=== PATIENT | female | born 1960 | race Caucasian/White ===

== ENCOUNTER → 2016-09-24 | Outpatient (CLI) | payer MEDICARE, MEDICAID ==
--- NOTE | 2016-09-24 17:36 | XCELERA REPORT ---
[address] [address] Lower Extremity Arterial Evaluation Name: TAPAN FIELDS Age: 55 yrs Gender: Female : 1960 Patient Status: Outpatient Patient Location: Study Date: 09/24/2016 02:02 PM Procedure: A color flow and duplex scan of the lower extremity arteries was performed bilaterally with velocity and waveform anaylsis. Ankle brachial indicies performed. Reason For Study: ULCER Ordering Physician: YARITZA GRANT Performed By: Evans Ha Measurements and Calculations Right Left MEDICAL MANAGER PSV 80.5 cm/sec Prox PFA PSV -58.5 -40.5 cm/sec Mid SFA PSV -10.0 cm/sec Dist SFA PSV -38.4 -63.7 cm/sec Prox Pop A PSV 39.5 28.9 cm/sec Dist BHAVESH PSV 10.8 13.0 cm/sec Prox DIRECTOR OF SEARCH ENGINE MARKETING PSV 12.2 8.4 cm/sec Dist Alisia A PSV 8.1 cm/sec Chris Pedis PSV 12.4 6.3 cm/sec Right Side Arterial Evaluation Abnormal velocity and monophasic phasic waveforms noted from the Common Femoral artery to the infrageniculate vessels. Occlusion of the Femoral artery is present, with severe attenuation after reconstitution. Occlusion of the Posterior Tibial artery with no flow distal to it. 50-99 % stenosis at the Aorta Iliac with sequential changes. Unusually severe vacuolar compromise. Just better than trickle flow distally. Ankle Brachial index was not obtainable.. Left Side Arterial Evaluation Abnormal velocity and monophasic phasic waveforms noted from the Common Femoral artery to the infrageniculate vessels. Occluded graft noted..Occlusion of the Femoral artery is present, with severe attenuation after reconstitution. Occlusion of the Posterior Tibial artery with no flow distal to it. 50-99 % stenosis at the Aorta Iliac with sequential changes. Unusually severe vacuolar compromise. Just better than trickle flow distally. Ankle Brachial index was not obtainable.. Interpretation Summary Severe hemodynamically significant lesions in the bilateral lower extremities, on duplex imaging, at rest. Occluded left Femoral graft noted. unusually severe compromise, bilaterally. : YARITZA GRANT > Yaritza Grant
== END ==
LOC: SP 13:22
PROVIDERS: ATTEND Surgery
DX: L97.509 Non-pressure chronic ulcer of other part of unspecified foot with unspecified severity (principal)
CPT/HCPCS: 93925

== ENCOUNTER 2017-09-19 10:11 | Emergency (ER) | payer MEDICAID, MEDICARE ==
--- NOTE | 2017-09-19 11:02 | ER Document Report ---
ED Extremity Problem, Lower - General Chief Complaint: Post Surgical Bleeding Stated Complaint: POST SURGICAL ISSUE Time Seen by Provider: 09/19/17 10:46 Mode of Arrival: Ambulatory Information source: Patient TRAVEL OUTSIDE OF THE U.S. IN LAST 30 DAYS: No - HPI Patient complains to provider of: Other - BLEEDING FROM SURGICAL SITE Location: Thigh Occurred: This morning Where: Home Onset/Duration: Sudden Quality of pain: No pain Context: Other - ARTERIAL GRAFT PLACED 2 MONTHS AGO IN [place], RECENTLY MOVED HERE, HAS APPT. TO SEE DR. HERNÁNDEZ ON 09/29. Associated symptoms: denies: Chest pain, Chills, Fever Exacerbated by: Nothing Relieved by: Nothing, Other - SPONTANEOUS RESOLUTION. - Related Data Allergies/Adverse Reactions: acetaminophen [From Percocet] Allergy (Verified 09/19/17 10:11) oxycodone [From Percocet] Allergy (Verified 09/19/17 10:11) Past Medical History - Social History Smoking Status: Current Some Day Smoker Cigarette use (# per day): Yes Chew tobacco use (# tins/day): No Frequency of alcohol use: None Drug Abuse: None Lives with: Family Family History: None Patient has suicidal ideation: No Patient has homicidal ideation: No - Past Medical History Cardiac Medical History: Reports: None Pulmonary Medical History: Reports: None Neurological Medical History: Reports: None Endocrine Medical History: Reports: Hx Diabetes Mellitus Type 1 Renal/ Medical History: Reports: None. Denies: Hx Peritoneal Dialysis Malignancy Medical History: Reports: None GI Medical History: Reports: None Musculoskeltal Medical History: Reports None Psychiatric Medical History: Reports: None Past Surgical History: Reports: Hx Orthopedic Surgery, Hx Vascular Surgery Review of Systems - Review of Systems Constitutional: No symptoms reported EENT: No symptoms reported Cardiovascular: No symptoms reported Respiratory: No symptoms reported Gastrointestinal: No symptoms reported Genitourinary: No symptoms reported Female Genitourinary: Post menopausal Musculoskeletal: No symptoms reported Skin: No symptoms reported Neurological/Psychological: No symptoms reported Physical Exam - Vital signs Vitals: Temp Pulse Resp BP Pulse Ox 97.6 F 108 H 18 105/56 L 94 09/19/17 10:15 09/19/17 10:15 09/19/17 10:15 09/19/17 10:15 09/19/17 10:15 Interpretation: Hypotensive, Tachycardic. No: Tachypneic - General General appearance: Appears well, Alert In distress: None - HEENT Head: Normocephalic Eyes: Normal Conjunctiva: Normal Ears: Normal Nasal: Normal Mouth/Lips: Normal Mucous membranes: Normal - Respiratory Respiratory status: No respiratory distress - Cardiovascular Rhythm: Regular - Abdominal Inspection: Normal - Extremities General upper extremity: Normal inspection General lower extremity: No: Normal inspection Hip: Other - 2 mm OPEN WOUND ALONG SURGICAL SCAR LEFT GROIN. NO ACTIVE BLEEDING. NO PALPABLE HEMATOMA Thigh: Normal Knee: Normal Calf: Normal Foot: Other - S/P AMPUTATION OF TOES # 3,4,5 Course - Vital Signs Vital signs: Temp Pulse Resp BP Pulse Ox 97.6 F 108 H 18 105/56 L 94 09/19/17 10:15 09/19/17 10:15 09/19/17 10:15 09/19/17 10:15 09/19/17 10:15 - Laboratory Result Diagrams: 09/19/17 11:00 09/19/17 11:00 Laboratory results interpreted by me: 09/19/17 09/19/17 11:00 11:00 RDW 14.7 H Glucose 490 H* Total Protein 6.2 L Discharge - Discharge Clinical Impression: Hyperglycemia due to type 1 diabetes mellitus, Bleeding from wound Condition: Stable Disposition: HOME, SELF-CARE Instructions: Hyperglycemia ([facility]) Additional Instructions: CONTINUE PRESENT MEDS. CONTINUE PRESENT WOUND CARE, TRY TO AVOID BENDING HIP MUCH POSSIBLE. TAKE CEPHALEXIN DIRECTED. CHECK YOUR BLOOD SUGAR BEFORE MEALS AND AT BEDTIME, AND GIVE YOURSELF REGULAR INSULIN ACCORDING TO SLIDING SCALE. FOLLOW UP WITH DR. HERNÁNDEZ SCHEDULED. FOLLOW UP WITH LOCAL PRIMARY CARE PROVIDER OF YOUR CHOICE, CALL FOR APPOINTMENT TODAY OR FRIDAY. RETURN TO E.R. IF PROBLEMS. Prescriptions: Cephalexin Monohydrate [Keflex 500 mg Capsule] 500 mg PO QID #20 capsule Insulin Regular, Human [Humulin R (Pyxis) Insulin 100 Unit/ml 3Ml] 0 unit SUBCUT .SLD SCALE #10 ml Referrals: RANDY ENGLAND MD [ACTIVE STAFF] - Follow up as needed FEMI DE LA CRUZ MD [ACTIVE STAFF] - Follow up as needed NANCY HERMOSILLO MD [ACTIVE STAFF] - Follow up as needed
[2017-09-19 11:23] LABS: ABSOLUTE BASOPHILS # (AUTO) 0.1 10^3/uL (0.0-0.2); ABSOLUTE EOSINOPHILS # (AUTO) 0.3 10^3/uL (0.0-0.6); ABSOLUTE LYMPHOCYTES (AUTO) 1.6 10^3/uL (0.5-4.7); ABSOLUTE MONOCYTES (AUTO) 0.5 10^3/uL (0.1-1.4); ABSOLUTE NEUT (AUTO) 5.7 10^3/uL (1.7-8.2); BASOPHILS % (AUTO) 0.7 % (0-2); EOSINOPHILS % (AUTO) 3.2 % (0-6); HEMATOCRIT 40.8 % (36.0-47.0); HEMOGLOBIN 13.7 g/dL (12.0-15.5); MEAN CORPUSCULAR HEMOGLOBIN 30.6 pg (27.0-33.4); MEAN CORPUSCULAR HGB CONC 33.5 g/dL (32.0-36.0); MEAN CORPUSCULAR VOLUME 92 fl (80-97); MONOCYTES % (AUTO) 5.6 % (3-13); PLATELET COUNT 175 10^3/uL (150-450); RED BLOOD COUNT 4.46 10^6/uL (3.72-5.28); RED CELL DISTRIBUTION WIDTH 14.7 % (11.5-14.0); SEGMENTED NEUTROPHILS % (AUTO) 70.5 % (42-78); TOTAL CELLS COUNTED % (AUTO) 100 %; WHITE BLOOD COUNT 8.1 10^3/uL (4.0-10.5)
[2017-09-19 11:31] LABS: INTERNATIONAL RATION (INR) 0.89; PROTHROMBIN TIME 12.5 SEC (11.4-15.4)
[2017-09-19 11:40] LABS: ALANINE AMINOTRANSFERASE 26 U/L (9-52); ALBUMIN 3.5 g/dL (3.5-5.0); ALKALINE PHOSPHATASE 80 U/L (38-126); ANION GAP 13 (5-19); ASPARTATE AMINO TRANSFERASE 18 U/L (14-36); BILIRUBIN,DIRECT 0.2 mg/dL (0.0-0.4); BILIRUBIN,TOTAL 0.3 mg/dL (0.2-1.3); BLOOD UREA NITROGEN 10 mg/dL (7-20); CALCIUM 9.1 mg/dL (8.4-10.2); CARBON DIOXIDE 24 mmol/L (22-30); CHLORIDE 102 mmol/L (98-107); POTASSIUM 4.1 mmol/L (3.6-5.0); SODIUM 139.2 mmol/L (137-145); TOTAL PROTEIN 6.2 g/dL (6.3-8.2)
[2017-09-19 11:51] LABS: GLUCOSE 490 mg/dL (75-110)
[2017-09-19] MEDS ORDERED: INSULIN REG, HUMAN 100 UNIT/ML 3 ML VIAL (PYX) SUBCUT ONE (12:26)
[2017-09-19] MEDS ORDERED: CEPHALEXIN 500 MG CAPSULE PO ONE (13:25)
[2017-09-19 13:52] VITALS: BP 112/67
== END 2017-09-19 13:52 | disposition home or self-care (01) ==
LOC: ER 10:11
DX: T82.838A Hemorrhage due to vascular prosthetic devices, implants and grafts, initial encounter (principal); E10.65 Type 1 diabetes mellitus with hyperglycemia; Z89.429 Acquired absence of other toe(s), unspecified side; F17.210 Nicotine dependence, cigarettes, uncomplicated
CPT/HCPCS: 99283; 36415; 82962; 85025; 85610; 80053; A9270 ×2; J1815

== ENCOUNTER → 2017-11-12 | Outpatient (CLI) | payer MEDICAID, MEDICARE ==
--- NOTE | 2017-11-12 14:44 | RADIOLOGY REPORT (SQ) ---
EXAM DESCRIPTION: FOOT LEFT COMPLETE COMPLETED DATE/TIME: 11/12/2017 1:54 pm REASON FOR STUDY: L97.522 NON-PRS CHRONIC ULCER OTH PRT LEFT FOOT W FAT LAYER EXPOSED L97.522 NON-P RS CHRONIC ULCER OTH PRT LEFT FOOT W FAT LAYER T81.31XA DISRUPTION OF EXTERNAL OPERATION (SURGICAL) WOUND, COMPARISON: None. NUMBER OF VIEWS: Three views. TECHNIQUE: AP, lateral and oblique radiographic images acquired of the left foot. LIMITATIONS: None. FINDINGS: MINERALIZATION: Normal. BONES: Previous amputation at the mid metatarsal level of the 3rd, 4th, 5th toes. No acute fracture or dislocation. No worrisome bone lesions. JOINTS: No effusions. SOFT TISSUES: Mild lateral soft tissue irregularity. No gas in the soft tissues. No foreign body. OTHER: No other significant finding. IMPRESSION: PREVIOUS AMPUTATION OF THE 3RD, 4TH, AND 5TH TOES. MILD LATERAL SOFT TISSUE IRREGULARIT Y MAY REPRESENT A SUPERFICIAL ULCER. NO RADIOPAQUE FOREIGN BODY OR GAS IN THE SOFT TISSUES. NO RADI OGRAPHIC EVIDENCE OF OSTEOMYELITIS. TECHNICAL DOCUMENTATION: JOB ID: [id number] [employer]- All Rights Reserved Reading location - IP/workstation name: [email or web address]
--- NOTE | 2017-11-12 16:38 | RADIOLOGY REPORT (SQ) ---
EXAM DESCRIPTION: VENOUS BILATERAL LOWER COMPLETED DATE/TIME: 11/12/2017 4:21 pm REASON FOR STUDY: SWELLING L97.522 NON-PRS CHRONIC ULCER OTH PRT LEFT FOOT W FAT LAYER T81.31XA D ISRUPTION OF EXTERNAL OPERATION (SURGICAL) WOUND, COMPARISON: None. TECHNIQUE: Dynamic and static darling scale and color images acquired of both lower extremity venous sy stems. Selected spectral images acquired with additional compression and augmentation maneuvers. Imag es stored on PACS. LIMITATIONS: None. FINDINGS: RIGHT LEG COMMON FEMORAL AND FEMORAL: Normal phasicity, compression and augmentation. No visualized echogenic m aterial on darling scale. No defects on color images. POPLITEAL: Normal compression and augmentation. No visualized echogenic material on darling scale. No de fects on color images. CALF VESSELS: Normal compression and augmentation. No visualized echogenic material on darling scale. No defects on color image. Please note that only 1 of the peroneal veins was visualized. GSV AND SSV: Normal compression. No visualized echogenic material on darling scale. No defects on color images. ANY DEEP VENOUS INSUFFICIENCY: Not evaluated. ANY EVIDENCE OF POPLITEAL CYST: No. OTHER: No other significant finding. LEFT LEG COMMON FEMORAL AND FEMORAL: Normal phasicity, compression and augmentation. No visualized echogenic m aterial on darling scale. No defects on color images. POPLITEAL: Normal compression and augmentation. No visualized echogenic material on darling scale. No de fects on color images. CALF VESSELS: Normal compression and augmentation. No visualized echogenic material on darling scale. No defects on color images. Please note that only 1 of the peroneal veins was visualized GSV AND SSV: Normal compression. No visualized echogenic material on darling scale. No defects on color images. ANY DEEP VENOUS INSUFFICIENCY: Not evaluated. ANY EVIDENCE POPLITEAL CYST: No. OTHER: No other significant finding. IMPRESSION: NO EVIDENCE DVT OR SVT IN EITHER LEG. TECHNICAL DOCUMENTATION: JOB ID: [id number] [employer]- All Rights Reserved Reading location - IP/workstation name: [email or web address]
== END ==
LOC: SP 14:04
PROVIDERS: ATTEND Nurse Practitioner
DX: L97.522 Non-pressure chronic ulcer of other part of left foot with fat layer exposed (principal); T81.31XA Disruption of external operation (surgical) wound, not elsewhere classified, initial encounter
CPT/HCPCS: 93970

== ENCOUNTER 2017-11-18 06:37 | Emergency (ER) | payer MEDICARE, MEDICAID ==
--- NOTE | 2017-11-18 06:46 | ER Document Report ---
ED General - General Stated Complaint: ABDOMINAL PAIN Time Seen by Provider: 11/18/17 06:46 Notes: 56-year-old female to the emergency department chief complaint of abdominal bleeding. Patient reportedly recently moved here from the [facility] [place]. Had surgery to open up blood flow to her lower extremities. Apparently had bypass graft placed. Developed wound dehiscence through the abdominal area. Woke up this morning covered in blood. Large amount of bleeding. Was unable to stand. Complaining of severe pain in the left leg. Not taking any of her medications. Has not been able to get her medicines since she has moved here. Daughter states that she drug her to the car and got her in the car. Patient collapsed at triage. Was brought immediately back to room 20. Patient complaining of severe pain in her left leg. Blood is oozing out of her abdomen at the incision site on the left. TRAVEL OUTSIDE OF THE [place] IN LAST 30 DAYS: No - HPI Onset: Just prior to arrival Quality of pain: Sharp, Throbbing Severity: Severe Pain Level: 5 Associated symptoms: Weakness - Related Data Allergies/Adverse Reactions: acetaminophen [From Percocet] Allergy (Verified 09/19/17 10:11) oxycodone [From Percocet] Allergy (Verified 09/19/17 10:11) Past Medical History - General Information source: Patient - Social History Smoking Status: Current Every Day Smoker Cigarette use (# per day): Yes Frequency of alcohol use: None Drug Abuse: None Lives with: Family Family History: None - Medical History Notes: Vascular issues, diabetes, hypertension Endocrine Medical History: Reports: Hx Diabetes Mellitus Type 1 Renal/ Medical History: Denies: Hx Peritoneal Dialysis Past Surgical History: Reports: Hx Orthopedic Surgery, Hx Vascular Surgery Review of Systems - Review of Systems Constitutional: Weakness. denies: Fever, Malaise EENT: denies: Double vision, Difficulty swallowing, Throat swelling Cardiovascular: Palpitations, Heart racing, Dizziness, Lightheaded. denies: Chest pain Respiratory: denies: Cough, Hurts to breathe, Short of breath, Wheezing Gastrointestinal: Abdominal pain. denies: Diarrhea, Nausea, Vomiting Genitourinary: denies: Burning Musculoskeletal: Other - Severe pain in the left lower extremity. Decreased blood flow left lower extremity Skin: Other - Bleeding from incision site left abdomen. denies: Dryness, Lesions Hematologic/Lymphatic: denies: Anemia, Blood clots, Easy bleeding, Easy bruising Neurological/Psychological: Confusion, Weakness, Numbness Physical Exam - Vital signs Vitals: Temp 96.8 F L 11/18/17 06:50 Interpretation: Hypotensive, Tachycardic - General General appearance: Alert. No: Appears well In distress: Severe - HEENT Head: Normocephalic, Atraumatic Eyes: Normal Pupils: PERRL - Respiratory Respiratory status: No respiratory distress Chest status: Nontender Breath sounds: Normal Chest palpation: Normal - Cardiovascular Rhythm: Tachycardia Heart sounds: Normal auscultation Murmur: No - Abdominal Inspection: Normal Distension: No: Distended Bowel sounds: Hypoactive Tenderness: Tender, Other - As an open abdomen the left lower quadrant which is bleeding. Patient has a large amount of blood coming out of her abdomen and down her legs Organomegaly: No organomegaly - Back Back: Normal, Nontender - Extremities General upper extremity: Normal inspection, Nontender, Normal color, Normal ROM , Normal temperature General lower extremity: Other - The bilateral lower extremities are cold to the touch with no palpable pulses present. There is pallor noted to the bilateral feet. There are multiple toes missing with some eschar is not on remaining toes. No palpable pulses - Neurological Neuro grossly intact: Yes Cognition: Normal Orientation: AAOx4 Glennie Coma Scale Eye Opening: Spontaneous Glennie Coma Scale Verbal: Oriented Glennie Coma Scale Motor: Obeys Commands Mara Coma Scale Total: 15 Speech: Normal Motor strength normal: LUE, RUE, LLE, RLE Sensory: Normal - Psychological Associated symptoms: Normal affect, Normal mood - Skin Skin Temperature: Warm Skin Moisture: Dry Skin Color: Other - Incision with active bleeding coming out of the abdomen at the post surgical incision site area. Course - Re-evaluation Re-evalutation: 11/18/17 08:11 This is extremely ill appearing female. Patient was brought immediately back. Placed on monitor. Initial blood pressure was systolic in the 70s. Blood pressure continued to drop down to systolics in the 50s. 2 large-bore IVs have been obtained. 2 L of LR have been ordered. Emergency release blood ordered with the assumption that she had had massive blood loss due to the large amount of blood that was seen on her abdomen and down her legs. I did order immediate transfusion. 1 of the IVs blew. The immediate need for more access was evident. Verbal consent was obtained. The right neck was prepped and an internal jugular vein central line triple-lumen catheter was placed with no complications. Blood pressure coming back up at this time. Anticipate transfer to [facility]. She is in guarded condition. 11/18/17 08:18 Patient has been followed by Dr. Daniels at [facility] who is a vascular surgeon. Will attempt to make contact with Dr. Daniels at this time. 11/18/17 09:04 [address] did speak with Dr. Daniels. He wants rapid transport at this time. Waiting on whether check. He did ask that we do a CT with abdomen and pelvis this with contrast at this time. Creatinine is 1.75 however surgical intervention is neville at this point. I am treating as well for sepsis. Zosyn has been ordered. 11/18/17 10:21 Laboratory 11/18/17 11/18/17 11/18/17 06:52 07:07 07:07 WBC 27.9 H RBC 3.13 L Hgb 9.4 L Hct 28.4 L MCV 91 MCH 30.0 MCHC 33.1 RDW 14.5 H Plt Count 379 Total Counted 100 Seg Neutrophils % Not Reportable Seg Neuts % (Manual) 85 H Band Neutrophils % 1 L Lymphocytes % Not Reportable Lymphocytes % (Manual) 7 L Monocytes % Not Reportable Monocytes % (Manual) 4 Eosinophils % Not Reportable Eosinophils % (Manual) 0 Basophils % Not Reportable Basophils % (Manual) 2 Metamyelocytes % 1 H Absolute Neutrophils Not Reportable Abs Neuts (Manual) 24.3 H Absolute Lymphocytes Not Reportable Abs Lymphs (Manual) 2.0 Absolute Monocytes Not Reportable Abs Monocytes (Manual) 1.1 Absolute Eosinophils Not Reportable Absolute Eos (Manual) 0.0 Absolute Basophils Not Reportable Abs Basophils (Manual) 0.6 H Toxic Granulation SLIGHT Platelet Comment ADEQUATE Polychromasia SLIGHT Rouleaux SLIGHT PT 16.1 H INR 1.23 APTT 29.0 VBG pH VBG pCO2 VBG HCO3 VBG Base Excess Sodium Potassium Chloride Carbon Dioxide Anion Gap BUN Creatinine Est GFR ( Amer) Est GFR (Non-Af Amer) Glucose POC Glucose 424 H* Lactic Acid Calcium Total Bilirubin Direct Bilirubin Neonat Total Bilirubin Neonat Direct Bilirubin Neonat Indirect Bili AST ALT Alkaline Phosphatase Creatine Kinase CK-MB (CK-2) Troponin I Total Protein Albumin Urine Color Urine Appearance Urine pH Ur Specific [place] Urine Protein Urine Glucose (UA) Urine Ketones Urine Blood Urine Nitrite Urine Bilirubin Urine Urobilinogen Ur Leukocyte Esterase Urine WBC (Auto) Urine RBC (Auto) U Hyaline Cast (Auto) Squamous Epi Cells Auto Amorphous Sediment Auto Urine Mucus (Auto) Urine Ascorbic Acid Blood Type Antibody Screen Crossmatch 11/18/17 11/18/17 11/18/17 07:07 07:07 07:07 WBC RBC Hgb Hct MCV MCH MCHC RDW Plt Count Total Counted Seg Neutrophils % Seg Neuts % (Manual) Band Neutrophils % Lymphocytes % Lymphocytes % (Manual) Monocytes % Monocytes % (Manual) Eosinophils % Eosinophils % (Manual) Basophils % Basophils % (Manual) Metamyelocytes % Absolute Neutrophils Abs Neuts (Manual) Absolute Lymphocytes Abs Lymphs (Manual) Absolute Monocytes Abs Monocytes (Manual) Absolute Eosinophils Absolute Eos (Manual) Absolute Basophils Abs Basophils (Manual) Toxic Granulation Platelet Comment Polychromasia Rouleaux PT INR APTT VBG pH VBG pCO2 VBG HCO3 VBG Base Excess Sodium 141.4 Potassium 3.7 Chloride 103 Carbon Dioxide 14 L Anion Gap 24 H BUN 19 Creatinine 1.75 H Est GFR ( Amer) 36 L Est GFR (Non-Af Amer) 30 L Glucose 353 H POC Glucose Lactic Acid Calcium 9.0 Total Bilirubin 0.7 Direct Bilirubin 0.7 H Neonat Total Bilirubin Not Reportable Neonat Direct Bilirubin Not Reportable Neonat Indirect Bili Not Reportable AST 23 ALT 10 Alkaline Phosphatase 65 Creatine Kinase 144 H CK-MB (CK-2) 0.96 Troponin I < 0.012 Total Protein 6.2 L Albumin 3.1 L Urine Color Urine Appearance Urine pH Ur Specific [place] Urine Protein Urine Glucose (UA) Urine Ketones Urine Blood Urine Nitrite Urine Bilirubin Urine Urobilinogen Ur Leukocyte Esterase Urine WBC (Auto) Urine RBC (Auto) U Hyaline Cast (Auto) Squamous Epi Cells Auto Amorphous Sediment Auto Urine Mucus (Auto) Urine Ascorbic Acid Blood Type A POSITIVE Antibody Screen NEGATIVE Crossmatch See Detail 11/18/17 11/18/17 11/18/17 07:07 07:07 08:30 WBC RBC Hgb Hct MCV MCH MCHC RDW Plt Count Total Counted Seg Neutrophils % Seg Neuts % (Manual) Band Neutrophils % Lymphocytes % Lymphocytes % (Manual) Monocytes % Monocytes % (Manual) Eosinophils % Eosinophils % (Manual) Basophils % Basophils % (Manual) Metamyelocytes % Absolute Neutrophils Abs Neuts (Manual) Absolute Lymphocytes Abs Lymphs (Manual) Absolute Monocytes Abs Monocytes (Manual) Absolute Eosinophils Absolute Eos (Manual) Absolute Basophils Abs Basophils (Manual) Toxic Granulation Platelet Comment Polychromasia Rouleaux PT INR APTT VBG pH 7.23 L VBG pCO2 38.5 VBG HCO3 15.8 L VBG Base Excess -10.9 Sodium Potassium Chloride Carbon Dioxide Anion Gap BUN Creatinine Est GFR ( Amer) Est GFR (Non-Af Amer) Glucose POC Glucose Lactic Acid 10.8 H Calcium Total Bilirubin Direct Bilirubin Neonat Total Bilirubin Neonat Direct Bilirubin Neonat Indirect Bili AST ALT Alkaline Phosphatase Creatine Kinase CK-MB (CK-2) Troponin I Total Protein Albumin Urine Color DARK YELLOW Urine Appearance CLOUDY Urine pH 5.0 Ur Specific [place] 1.017 Urine Protein 30 H Urine Glucose (UA) >=500 H Urine Ketones TRACE H Urine Blood NEGATIVE Urine Nitrite NEGATIVE Urine Bilirubin NEGATIVE Urine Urobilinogen 4.0 H Ur Leukocyte Esterase NEGATIVE Urine WBC (Auto) 163 Urine RBC (Auto) 33 U Hyaline Cast (Auto) 403 Squamous Epi Cells Auto 13 Amorphous Sediment Auto 1+ Urine Mucus (Auto) MOD Urine Ascorbic Acid NEGATIVE Blood Type Antibody Screen Crossmatch Chest X-Ray 11/18/17 00:00 IMPRESSION: Status post central line placement on the right with the tip of the catheter projected over the superior vena cava. No pneumothorax. Vague confluent density medial aspect of the right base. See above discussion. Abdomen/Pelvis CT 11/18/17 08:54 IMPRESSION: Occluded aorta just inferior to the renal arteries. Occluded right upper extremity bifemoral graft. 11/18/17 10:25 Transport is available shortly. Remained stable for transport. - Vital Signs Vital signs: Temp Pulse Resp BP Pulse Ox 94.4 F L 22 H 126/60 H 97 11/18/17 09:01 11/18/17 09:01 11/18/17 09:01 11/18/17 09:01 - Laboratory Result Diagrams: 11/18/17 07:07 11/18/17 07:07 Laboratory results interpreted by me: 11/18/17 11/18/17 11/18/17 06:52 07:07 07:07 WBC 27.9 H RBC 3.13 L Hgb 9.4 L Hct 28.4 L RDW 14.5 H Seg Neuts % (Manual) 85 H Band Neutrophils % 1 L Lymphocytes % (Manual) 7 L Metamyelocytes % 1 H Abs Neuts (Manual) 24.3 H Abs Basophils (Manual) 0.6 H PT 16.1 H VBG pH VBG HCO3 Carbon Dioxide Anion Gap Creatinine Est GFR ( Amer) Est GFR (Non-Af Amer) Glucose POC Glucose 424 H* Lactic Acid Direct Bilirubin Creatine Kinase Total Protein Albumin Urine Protein Urine Glucose (UA) Urine Ketones Urine Urobilinogen Crossmatch 11/18/17 11/18/17 11/18/17 07:07 07:07 07:07 WBC RBC Hgb Hct RDW Seg Neuts % (Manual) Band Neutrophils % Lymphocytes % (Manual) Metamyelocytes % Abs Neuts (Manual) Abs Basophils (Manual) PT VBG pH VBG HCO3 Carbon Dioxide 14 L Anion Gap 24 H Creatinine 1.75 H Est GFR ( Amer) 36 L Est GFR (Non-Af Amer) 30 L Glucose 353 H POC Glucose Lactic Acid 10.8 H Direct Bilirubin 0.7 H Creatine Kinase 144 H Total Protein 6.2 L Albumin 3.1 L Urine Protein Urine Glucose (UA) Urine Ketones Urine Urobilinogen Crossmatch See Detail 11/18/17 11/18/17 07:07 08:30 WBC RBC Hgb Hct RDW Seg Neuts % (Manual) Band Neutrophils % Lymphocytes % (Manual) Metamyelocytes % Abs Neuts (Manual) Abs Basophils (Manual) PT VBG pH 7.23 L VBG HCO3 15.8 L Carbon Dioxide Anion Gap Creatinine Est GFR ( Amer) Est GFR (Non-Af Amer) Glucose POC Glucose Lactic Acid Direct Bilirubin Creatine Kinase Total Protein Albumin Urine Protein 30 H Urine Glucose (UA) >=500 H Urine Ketones TRACE H Urine Urobilinogen 4.0 H Crossmatch Procedures - Central Line Right Internal jugular Time completed: 08:04 Consent obtained: Yes Central line pre-insertion: Sterile PPE donned, Betadine prep applied, Sterile drapes applied Central line lumen type: Triple Anesthetic type: 1% Lidocaine mL's of anesthesia: 4 Ultrasound guided: Yes Line secured with sutures: Yes Central line post-insertion: Blood return from lumens, Biopatch applied, Sutured , Sterile dressing applied, Position confirmed w/ CXR Number of attempts: 1 Complications: No Critical Care Note - Critical Care Note Total time excluding time spent on procedures (mins): 90 Comments: Hypotension, vascular emergency, consultation with specialists, medication treatments, rapid transfusions. Discharge - Discharge Clinical Impression: Ischemic leg, Postoperative bleeding from incision, Aortic occlusion Condition: Serious Disposition: [facility] Referrals: RYAN CR, SHIP KEEPER [Primary Care Provider] - Follow up as needed
[2017-11-18] MEDS ORDERED: RINGERS SOLUTION,LACTATED 1,000 ML IV PRN (06:47)
[2017-11-18] MEDS ORDERED: FENTANYL CITRATE INJ/PF 100 MCG/2 ML AMPUL IV ONE ×2 (06:57→09:47)
[2017-11-18] MEDS: NORMAL SALINE 1000 ML 1,000 ML IV PRN ×2 (07:07→08:10)
[2017-11-18] MEDS ORDERED: NORMAL SALINE 250 ML IV PRN (07:13)
[2017-11-18 07:28] LABS: HEMATOCRIT 28.4 % (36.0-47.0); HEMOGLOBIN 9.4 g/dL (12.0-15.5); MEAN CORPUSCULAR HGB CONC 33.1 g/dL (32.0-36.0); MEAN CORPUSCULAR VOLUME 91 fl (80-97); PLATELET COUNT 379 10^3/uL (150-450); RED BLOOD COUNT 3.13 10^6/uL (3.72-5.28); RED CELL DISTRIBUTION WIDTH 14.5 % (11.5-14.0); WHITE BLOOD COUNT 27.9 10^3/uL (4.0-10.5)
[2017-11-18 07:29] LABS: VENOUS BLOOD BASE EXCESS -10.9 mmol/L; VENOUS BLOOD HCO3 15.8 mmol/L (20-32); VENOUS BLOOD PCO2 38.5 mmHg (35-63); VENOUS BLOOD PH 7.23 (7.30-7.42)
[2017-11-18 07:34] LABS: INTERNATIONAL RATION (INR) 1.23; PROTHROMBIN TIME 16.1 SEC (11.4-15.4)
[2017-11-18 07:47] LABS: ALANINE AMINOTRANSFERASE 10 U/L (9-52); ALBUMIN 3.1 g/dL (3.5-5.0); ALKALINE PHOSPHATASE 65 U/L (38-126); ASPARTATE AMINO TRANSFERASE 23 U/L (14-36); BILIRUBIN,DIRECT 0.7 mg/dL (0.0-0.4); BILIRUBIN,TOTAL 0.7 mg/dL (0.2-1.3); BLOOD UREA NITROGEN 19 mg/dL (7-20); CREATINE KINASE 144 U/L (30-135); GLUCOSE 353 mg/dL (75-110); POTASSIUM 3.7 mmol/L (3.6-5.0); TOTAL PROTEIN 6.2 g/dL (6.3-8.2)
[2017-11-18 07:49] LABS: CARBON DIOXIDE 14 mmol/L (22-30); CHLORIDE 103 mmol/L (98-107); SODIUM 141.4 mmol/L (137-145)
[2017-11-18 07:54] LABS: ABSOLUTE MONOCYTES # (MANUAL) 1.1 10^3/uL (0.1-1.4); ABSOLUTE NEUTROPHILS# (MANUAL) 24.3 10^3/uL (1.7-8.2); BAND NEUTROPHILS % (MANUAL) 1 % (3-5); BASOPHILS % (MANUAL) 2 % (0-2); EOSINOPHILS % (MANUAL) 0 % (0-6); LYMPHOCYTES % (MANUAL) 7 % (13-45); METAMYELOCYTES % (MANUAL) 1 % (0); MONOCYTES % (MANUAL) 4 % (3-13); SEGMENTED NEUTROPHILS % (MAN) 85 % (42-78); TOTAL CELLS COUNTED 100
[2017-11-18 07:55] LABS: PLATELET COMMENT ADEQUATE; POLYCHROMASIA SLIGHT; ROULEAUX SLIGHT; TOXIC GRANULATION SLIGHT
[2017-11-18 07:59] LABS: CREATINE KINASE MB 0.96 ng/mL (<4.55)
[2017-11-18 08:00] LABS: TROPONIN I < 0.012 ng/mL
[2017-11-18] MEDS ORDERED: PIPERACILLIN/TAZOBACTAM 3.375 GM VIAL IV ONE (08:05)
[2017-11-18 08:24] LABS: ANION GAP 24 (5-19)
--- NOTE | 2017-11-18 08:39 | RADIOLOGY REPORT (SQ) ---
EXAM DESCRIPTION: CHEST SINGLE VIEW COMPLETED DATE/TIME: 11/18/2017 8:28 am REASON FOR STUDY: post central line COMPARISON: None. EXAM PARAMETERS: NUMBER OF VIEWS: One view. TECHNIQUE: Single frontal radiographic view of the chest acquired. RADIATION DOSE: NA LIMITATIONS: None. FINDINGS: LUNGS AND PLEURA: No pneumothorax. Minimal vague confluent density medial aspect of the r ight base partially obscured by overlying artifact. Summation density versus atelectasis or infiltra te. MEDIASTINUM AND HILAR STRUCTURES: No masses. Contour normal. HEART AND VASCULAR STRUCTURES: Heart normal in size. Normal vasculature. BONES: No acute findings. HARDWARE: Right internal jugular catheter present with the tip projected over the superior vena cava. OTHER: No other significant finding. IMPRESSION: Status post central line placement on the right with the tip of the catheter projected o herber the superior vena cava. No pneumothorax. Vague confluent density medial aspect of the right bas e. See above discussion. TECHNICAL DOCUMENTATION: JOB ID: [id number] [employer]- All Rights Reserved Reading location - IP/workstation name: [email or web address]
[2017-11-18 08:56] LABS: AMORPHOUS SEDIMENT,URINE 1+ /HPF; APPEARANCE,URINE CLOUDY; BILIRUBIN,URINE NEGATIVE (NEGATIVE); COLOR,URINE DARK YELLOW; GLUCOSE, URINE >=500 mg/dL (NEGATIVE); KETONES,URINE TRACE mg/dL (NEGATIVE); LEUKOCYTE ESTERASE,URINE NEGATIVE (NEGATIVE); NITRITE,URINE NEGATIVE (NEGATIVE); PROTEIN,URINE 30 mg/dL (NEGATIVE); URINE SPECIFIC GRAVITY 1.017
[2017-11-18 09:10] VITALS: BP 126/60
--- NOTE | 2017-11-18 09:52 | RADIOLOGY REPORT (SQ) ---
EXAM DESCRIPTION: CT ABD/PELVIS WITH IV ONLY COMPLETED DATE/TIME: 11/18/2017 9:28 am REASON FOR STUDY: abd pain, bleeding COMPARISON: None. TECHNIQUE: CT scan of the abdomen and pelvis performed using helical scanning technique with dynamic intravenous contrast injection. No oral contrast. Images reviewed with lung, soft tissue, and bone windows. Reconstructed coronal and sagittal MPR images reviewed. Delayed images for evaluation of the urinary system also acquired. All images stored on PACS. All CT scanners at this facility use dose modulation, iterative reconstruction, and/or weight based d osing when appropriate to reduce radiation dose to as low as reasonably achievable (ALARA). [facility]: Dose Right [facility]: CareDose [facility]: Dose Right [facility]: Teradose 4D [facility]: Fluentify CONTRAST TYPE AND DOSE: contrast/concentration: Isovue 300.00 mg/ml; Total Contrast Delivered: 69.0 ml; Total Saline Delivered: 65.0 ml RENAL FUNCTION: BUN 19 creatinine 1.8 RADIATION DOSE: CT Rad equipment meets quality standard of care and radiation dose reduction techniq ues were employed. CTDIvol: 16.4 - 19.2 mGy. DLP: 1852 mGy-cm.. LIMITATIONS: None. FINDINGS: LOWER CHEST: No significant findings. No nodules or infiltrates. LIVER: Normal size. No masses. No dilated ducts. SPLEEN: Normal size. No focal lesions. PANCREAS: No masses. No significant calcifications. No adjacent inflammation or peripancreatic fluid collections. Pancreatic duct not dilated. GALLBLADDER: No identified stones by CT criteria. No inflammatory changes to suggest cholecystitis. ADRENAL GLANDS: Thickening of the left adrenal. No discrete nodule identified. RIGHT KIDNEY AND URETER: No solid masses. No significant calcifications. No hydronephrosis or hyd roureter. LEFT KIDNEY AND URETER: No solid masses. 2 mm left renal calculus. No hydronephrosis or hydrouret er. AORTA AND VESSELS: The aorta is occluded just inferior to the renal arteries. There is a stent in th e left common iliac artery. There is a right upper extremity bifemoral graft which is occluded at th e distal anastomosis. RETROPERITONEUM: No retroperitoneal adenopathy, hemorrhage or masses. BOWEL AND PERITONEAL CAVITY: No masses or inflammatory changes. No free fluid or peritoneal masses. APPENDIX: Normal. PELVIS: Quiroz catheter in urinary bladder. ABDOMINAL WALL: Left lower quadrant abdominal wall hernia containing fat. BONES: No significant or acute findings. OTHER: No other significant finding. 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 COMMENT: Findings were called to Dr. Lopez at 0943 hours. TECHNICAL DOCUMENTATION: JOB ID: [id number] Quality ID # [id number]: Final reports with documentation of one or more dose reduction techniques (e.g., Au tomated exposure control, adjustment of the mA and/or kV according to patient size, use of iterative reconstruction technique) 2010 [employer]- All Rights Reserved Reading location - IP/workstation name: [email or web address]
--- NOTE | 2017-11-18 13:55 | EKG REPORT ---
SEVERITY:- ABNORMAL ECG - SINUS TACHYCARDIA PROBABLE LEFT ATRIAL ABNORMALITY MINIMAL ST DEPRESSION, INFERIOR LEADS BORDERLINE PROLONGED QT INTERVAL : Confirmed by: Brent Reagan MD 18-Nov-2017 13:55:16
--- NOTE | 2017-11-19 12:32 | XCELERA REPORT ---
[address] [address] Lower Extremity Arterial Evaluation Name: TAPAN FIELDS Age: 56 yrs Gender: Female : 1960 Patient Status: Emergency Patient Location: ER Study Date: 11/18/2017 09:33 AM Procedure: A color flow and duplex scan of the lower extremity arteries was performed bilaterally with velocity and waveform anaylsis. Reason For Study: loss of pulses Ordering Physician: GRISELDA CONDE Performed By: Gabbie Mcelroy Measurements and Calculations Right Left Prox PFA PSV -133.3 24.1 cm/sec Prox SFA PSV 15.7 25.5 cm/sec Dist SFA PSV -45.9 -26.1 cm/sec Prox Pop A PSV 58.1 29.9 cm/sec Dist Pop A PSV -39.0 cm/sec Dist BHAVESH PSV 34.0 12.6 cm/sec Dist DEMONSTRATOR ELECT[employer]IC GAS APPLIANCES PSV 21.4 cm/sec Chris Pedis PSV 43.2 cm/sec Right Side Arterial Evaluation Could not visualise Common Femoral artery due to presence of synthetic graft. Low velocity and monophasic waveforms noted from the Femoral artery to the infrageniculate vessels. 50-99 % stenosis at the inflow and Femoral artery. Ankle Brachial index ws not obtaibnable. Left Side Arterial Evaluation Could not visualize Common Femoral artery due to presence of synthetic graft. Low velocity and monophasic waveforms noted from the Femoral artery to the infrageniculate vessels. Worsening distally. Occluded Posterior Tibial artery. Very low flow in the anterior Tibial 50-99 % stenosis at the inflow and Femoral artery. Sequential disease. Ankle Brachial index ws not obtainable. Critical Findings Discussed with Dr. Conde, the patient apparently has an Axillary Femoral or bifemoral graft. Transfer to [facility] was in place. Interpretation Summary Severe hemodynamically significant lesions in the bilateral lower extremities, on duplex imaging, at rest. Much worse on left, compatible with limb ischemia. : GRISELDA CONDE > Rufus Grnat
== END 2017-11-18 10:25 | disposition short-term general hospital (02) ==
LOC: ER 06:37
DX: T81.31XA Disruption of external operation (surgical) wound, not elsewhere classified, initial encounter (principal); T82.898A Other specified complication of vascular prosthetic devices, implants and grafts, initial encounter; Y83.2 Surgical operation with anastomosis, bypass or graft as the cause of abnormal reaction of the patient, or of later complication, without mention of misadventure at the time of the procedure; Y82.8 Other medical devices associated with adverse incidents; I70.0 Atherosclerosis of aorta; I99.8 Other disorder of circulatory system; I95.9 Hypotension, unspecified; M79.605 Pain in left leg; F17.210 Nicotine dependence, cigarettes, uncomplicated; E10.9 Type 1 diabetes mellitus without complications; Z88.5 Allergy status to narcotic agent; Z88.6 Allergy status to analgesic agent
CPT/HCPCS: 93005; 96376; 99291; 99292; 96361; 90471; 96375; 96365; 86900; 86901; 36415; 87040; 82553; 36430; 86850; 82962; 82550; 85025; 85610; 85730; 87077; 80053; 81001; 84484; 87186; 86920; 82803; 83605; 93925 ×2; 71045; 74177; 93010; 36556; C1751; P9016; J3010; J7030; J7050; J2543